=== PATIENT | male | born 1945 | race Caucasian/White ===

== ENCOUNTER 2018-04-17 18:03 | Inpatient (IN) | payer MEDICARE, OTHER ==
[2018-04-17 18:59] LABS: % BASOPHILS 0.1 % (0.0-2.0); % EOSINOPHILS 1.7 % (0.0-5.0); % LYMPHOCYTES 18.2 % (20.0-50.0); % MONOCYTES 6.8 % (2.0-10.0); % NEUTROPHILS 73.2 % (40.0-80.0); EOSINOPHILE ABSOLUTE 0.2 Th/cmm (0.1-0.4); HEMATOCRIT 45.5 % (41.0-60); HEMOGLOBIN 15.1 gm/dL (12-16); LYMPHOCYTE ABSOLUTE 1.7 Th/cmm (1.5-3.0); MEAN CELL VOLUME 89.3 fl (80-99); MEAN CORPUSCULAR HEMOGLOBIN 29.7 pg (27.0-31.0); MEAN CORPUSCULAR HGB CONC 33.3 pg (28.0-36.0); MEAN PLATELET VOLUME 6.9 fl; MONOCYTE ABSOLUTE 0.6 Th/cmm (0.3-1.0); NEUTROPHILE ABSOLUTE 6.6 Th/cmm (1.8-8.0); PLATELET COUNT 304 Th/cmm (150-400); RED BLOOD COUNT 5.09 Mil/cmm (3.80-5.80); WHITE BLOOD COUNT 9.1 Th/cmm (4.8-10.8)
[2018-04-17 19:17] LABS: ALB/GLOB RATIO 1.4 (1.0-1.8); ALBUMIN 3.7 gm/dL (4.2-5.5); ALKALINE PHOSPHATASE 69 U/L (34-104); ANION GAP 12.4 (7.0-16.0); BILIRUBIN,TOTAL 0.6 mg/dL (0.3-1.0); BUN - UREA NITROGEN 22 mg/dL (7-25); CALCIUM SERUM 8.8 mg/dL (8.6-10.3); CARBON DIOXIDE 26.6 mEq/L (21.0-31.0); CHLORIDE 105 mEq/L (98-107); CREATININE - SERUM 1.2 mg/dL (0.7-1.3); GLUCOSE 190 mg/dL (70-105); MAGNESIUM 2.2 mg/dL (1.9-2.7); PHOSPHOROUS 3.7 mg/dL (2.5-5.0); SGOT 10 U/L (13-39); SGPT/ALT 12 U/L (7-52); SODIUM SERUM 140 mEq/L (136-145); TOTAL PROTEIN,SERUM 6.4 gm/dL (6.0-8.3)
--- NOTE | 2018-04-17 19:25 | ED Physician Chart ---
ED Chief Complaint/HPI - Patient Information Date Seen:: 04/17/18 Time Seen:: 18:19 Chief Complaint:: Combative behavior History of Present Illness:: Combative behavior Allergies:: Allergies Allergy/AdvReac Type Severity Reaction Status Date / Time No Known Allergies Allergy Verified 04/17/18 18:08 Vitals:: Vital Signs - 8 hr 04/17/18 18:19 Temp 97.7 F HR 82 RR 17 BP 120/55 O2 Sat % 99 Historian:: Medical Records Review:: Transfer documents Reviewed ED Review of Systems - Review of Systems General/Constitutional: No fever, No chills, No weight loss, No weakness, No diaphoresis, No edema, No loss of appetite Skin: No skin lesions, No rash, No bruising Head: No headache, No light-headedness Eyes: No loss of vision, No pain, No diplopia ENT: Earache Neck: No neck pain, No swelling, No thyromegaly, No stiffness, No mass noted Cardio Vascular: No chest pain, No palpitations, No PND, No orthopnea, No edema Pulmonary: No SOB, No cough, No sputum, No wheezing GI: No nausea, No vomiting, No diarrhea, No pain, No melena, No hematochezia, No constipation, No hematemesis G/U: No dysuria, No frequency, No hematuria Musculoskeletal: No bone or joint pain, No back pain, No muscle pain Endocrine: No polyuria, No polydipsia Psychiatric: Prior psych history, Other (combative disorder; increased agitation ) Hematopoietic: No bruising, No lymphadenopathy Allergic/Immuno: No urticaria, No angioedema Neurological: No syncope, No focal symptoms, No weakness, No paresthesia, No headache, No seizure, No dizziness, No confusion, No vertigo ED Past Medical History - Past Medical History Past Medical History: HTN, DM, Dyslipidemia Psychiatricy History: Other (impulsive control disorder; pseudobulbar affect) Family Medical History - Family Member Mother History Unknown: Yes Ethnicity: Non- Living Status: ED Physical Exam - Physical Examination General/Constitutional: Awake, Well-developed, well-nourished, Alert, No distress, Non-toxic appearing, Ambulatory Head: Atraumatic Eyes: Lids, conjuctiva normal, PERRL, EOMI Skin: Nl inspection, No rash, No skin lesions, No ecchymosis, Well hydrated, No lymphadenopathy ENMT: External ears, nose nl Neck: Nontender, Full ROM w/o pain, No JVD, No nuchal rigidity, No bruit, No mass, No stridor Respiratory: Nl effort/Exclusion, Clear to Auscultation, No Wheeze/Rhonchi/Rales Cardio Vascular: RRR, No murmur, gallop, rubs, NL S1 S2 GI: No tenderness/rebounding/guarding, No organomegaly, No hernia, Normal BS's, Nondistended, No mass/bruits, No McBurney tenderness : No CVA tenderness Extremities: No tenderness or effusion, Full ROM, normal strength in all extremities, No edema, Normal digits & nails Neuro/Psych: Normal sensory exam, Normal motor strength, No focal deficits Misc: Normal back ED Labs/Radiology/EKG Results - Lab Results Results: Laboratory Tests 04/17/18 04/17/18 04/17/18 18:45 18:45 18:45 WBC 9.1 RBC 5.09 Hgb 15.1 Hct 45.5 MCV 89.3 MCH 29.7 MCHC Differential 33.3 RDW 13.0 Plt Count 304 MPV 6.9 Neutrophils % 73.2 Lymphocytes % 18.2 L Monocytes % 6.8 Eosinophils % 1.7 Basophils % 0.1 Sodium 140 Potassium 4.0 Chloride 105 Carbon Dioxide 26.6 Anion Gap 12.4 BUN 22 Creatinine 1.2 Est GFR ( Amer) TNP Est GFR (Non-Af Amer) TNP BUN/Creatinine Ratio 18.3 Glucose 190 H Calcium 8.8 Phosphorus 3.7 Magnesium 2.2 Total Bilirubin 0.6 AST 10 L ALT 12 Alkaline Phosphatase 69 Total Protein 6.4 Albumin 3.7 L Globulin 2.7 Albumin/Globulin Ratio 1.4 Valproic Acid < 10.0 L ED Assessment - Assessment General Assessment: SIGN OUT GIVEN TO DR. ALEGRE TO CHECK URINALYSIS. ED Septic Shock - . Is Septic Shock (SBP<90, OR Lactate>4 mmol\L) present?: No - <6hrs of presentation: Vital Signs: Vital Signs - 8 hr 04/17/18 18:19 Temp 97.7 F HR 82 RR 17 BP 120/55 O2 Sat % 99 ED Reassessment (Disposition) - Reassessment Reassessment Condition:: Unchanged - Diagnosis Diagnosis:: Combative behavior Increased agitation Impulsive control disorder Pseudobulbar affect - Aftercare/Follow up Instructions Notes:: SIGN OUT GIVEN TO DR. ALEGRE TO CHECK URINALYSIS. - Patient Disposition Discharge/Transfer:: Acute Care w/in this hosp Admitted to:: [facility] Condition at Disposition:: Stable, Unchanged
[2018-04-17 22:41] VITALS: BP 107/67
[2018-04-17] MEDS ORDERED: Hydrocodone/APAP 5mg/325mg Tab PO PRN (22:59)
[2018-04-18 06:37] LABS: CHOLESTEROL 142 mg/dL (<200); HDL -HIGH DENSITY LIPOPROTEIN 28 mg/dL (23-92); TRIGLYCERIDES 160 mg/dL (<150)
--- NOTE | 2018-04-18 08:53 | Psychiatric Evaluation ---
DATE OF SERVICE: 04/18/2018 JUSTIFICATION FOR HOSPITALIZATION: Combative behaviors. CHIEF COMPLAINT: "I am here to get myself declare to certain age." HISTORY OF PRESENT ILLNESS: A 72-year-old male, very confused, disoriented apparently has been combative, aggressive, agitated, does not know where he is, believes that he is here to "get myself declared at certain age." States the year is "the ." The month is "." States he was born "." What he describes is his date of . The patient is nonsensical on exam, very poor historian. Denies overt depression. 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 PAST PSYCHIATRIC HISTORY: Unclear, but seems that he is pretty serious, narrow cognitive impairment, strong, rule out dementia. Unclear if he has any bipolar disorder. FAMILY HISTORY: Noncontributory. SOCIAL HISTORY: The patient seems to be coming from a correction facility, but details as of yet are unclear. It is unclear if he has a or any children. Unclear drugs, alcohol or tobacco, not able to answer these questions. MEDICAL HISTORY: Please see full H and P. MEDICATIONS: Reviewed. MENTAL STATUS EXAMINATION: Stated age. Fair eye contact. Speech is rambling. Mood "okay." Affect flat. Thought processes were disorganized, disoriented. No overt SI or HI. No acute psychotic symptoms. Poor insight, poor judgment, poor impulse control. PROVISIONAL DIAGNOSES: Likely dementia, psychosis, unspecified; mood, unspecified. Under medical, please see full H and P including pseudobulbar affect. ESTIMATED LENGTH OF STAY: 7-10 days. ASSESSMENT: The patient is disorganized, disoriented, combative, confused. PLAN: Treatment plan includes group as well as milieu therapy. We will titrate and adjust medications. CONDITIONS FOR DISCHARGE: Improved mood, improved affect, better control of his agitation. JOB# [id number]
[2018-04-18] MEDS: Dextromethorphan/Quinidine 20mg/10mg Cap PO SCH ×2 (10:01→17:33)
[2018-04-18] MEDS: Aspirin 81mg Chewable Tab PO SCH (10:01)
[2018-04-18] MEDS: Multivitamin w/ Minerals Tab PO SCH (10:01)
[2018-04-18] MEDS: GALANTAMINE HYDROBROMIDE 12 MG PO SCH ×2 (10:02→17:32)
[2018-04-18] MEDS ORDERED: Non-Formulary Item 1 EA (Metoprolol Succinate [Metoprolol Succinate] 25 MG) PO SCH (17:00)
[2018-04-18] MEDS: Atorvastatin Calcium 10 MG TAB PO SCH (20:56)
[2018-04-18] MEDS ORDERED: Non-Formulary Item 1 EA (Atorvastatin Calcium [Lipitor] 40 MG) PO SCH (21:00)
--- NOTE | 2018-04-18 21:47 | History & Physical ---
ADMIT DATE: 04/18/2018 PATIENT IDENTIFICATION: A 72-year-old male. REQUESTING PHYSICIAN: Dr. Gerber. REASON: Medical management. HISTORY OF PRESENT ILLNESS: A 72-year-old male who resides in a usp, brought in to the Emergency Room at [facility] for evaluation of combative, aggressive behavior with agitation. The patient, upon my interview, is very calm and trying to provide history, but he needed to think multiple times in order to give history. I do think his history is quite a bit unreliable. The patient's history is reviewed from the chart as well as talking to the staff. PAST MEDICAL HISTORY: Remarkable for: 1. Diabetes. 2. Hypertension. 3. Hyperlipidemia. 4. Degenerative joint disease. 5. Dementia. 6. Cerebrovascular accident. 7. Psychotic disorder. MEDICATIONS AT HOME: The patient is taking medications, which includes Tylenol, Wray, vitamin C, aspirin, Lipitor, Nuedexta, Depakote, Zetia, Pepcid, Razadyne, Glucotrol, lisinopril, Ativan, metoprolol, Ambien. ALLERGIES: The patient is not allergic to medications. SOCIAL HISTORY: The patient resides in a usp. No history of smoking cigarette, alcohol, or drug use. FAMILY MEDICAL HISTORY: Unknown. REVIEW OF SYSTEMS: The patient denies any headache, blurred vision, double vision, dysphagia, odynophagia, runny nose, stuffy nose, fever, chills, cough, chest pain, shortness of breath, palpitation, dizziness, nausea, vomiting, or diarrhea. The patient complained of difficulty walking. Denies any seizure or syncopal episode. PHYSICAL EXAMINATION: GENERAL: Alert, awake, lying in the bed. VITAL SIGNS: Temperature 97.6, pulse 77, respiratory rate is 18, blood pressure 130/70. HEENT: Normocephalic, atraumatic. Extraocular muscles intact. Tongue was pink and coated. No oral lesions, no exudate. No sinus tenderness. NECK: Supple, no JVD, no hepatojugular reflex. No lymphadenopathy or thyromegaly. HEART: Both heart sounds are regular. Grade 3/6 systolic murmur noted. CHEST: Lung equal in expansion, no expiratory wheezing. ABDOMEN: Soft. No guarding, no rigidity. Liver and spleen palpable. No palpable mass. EXTREMITIES: No edema. Diffuse osteoarthritic changes involving upper and lower extremity noted. No calf tenderness noted. NEUROLOGIC: Alert, awake, follows commands. No facial asymmetry. Moves upper and lower extremity without any difficulty. No evidence of any atrophy or hypo or hypertonia noted. Unable to do further examinations considering the patient was not cooperative to a detailed neurological exam. AVAILABLE DIAGNOSTIC DATA: White count of 9.1, hemoglobin of 15.1, platelet count of 304. BUN and creatinine is 22 and 1.2. Electrolytes are normal. Liver functions are normal. Albumin of 3.7. TSH of 1.95. CLINICAL IMPRESSION: 1. Diabetes mellitus. 2. Hypertension. 3. Hyperlipidemia. 4. Psychotic disorder exacerbation. 5. Dementia. 6. Cerebrovascular accident. 7. Degenerative joint disease. 8. Fall risk. PLAN: Resume antihypertensive medicine along with diabetic and statins. Continue to provide nutritional support, general nursing care as well as CVA prophylaxis. Resume all his home medication as well. The patient will be seen by physical therapy and appropriate recommendation will be given. Psychotic evaluation and management will be deferred to psychiatrist. I sincerely thank you, Dr. Gerber, for giving me the opportunity to participate in patient of yours. JOB# [id number]
--- NOTE | 2018-04-19 06:50 | Progress Notes ---
DATE: 04/19/2018 SUBJECTIVE: The patient is currently in the hospital, calm, cooperative at this time, but very confused, forgetful, only knows his name, does not know where he is or what is going on or why he is here. The patient mostly withdrawn, keeps to himself, still noted to be impulsive, unpredictable. 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 ASSESSMENT: The patient remains symptomatic, ongoing symptoms indicative of potential dangerousness, combative behaviors. PLAN: We will continue to monitor, adjust and titrate medications. He remains impulsive. JOB# [id number]
[2018-04-19] MEDS: GALANTAMINE HYDROBROMIDE 12 MG PO SCH ×2 (09:25→17:02)
[2018-04-19] MEDS: Aspirin 81mg Chewable Tab PO SCH (09:26)
[2018-04-19] MEDS: Multivitamin w/ Minerals Tab PO SCH (09:27)
[2018-04-19] MEDS: Dextromethorphan/Quinidine 20mg/10mg Cap PO SCH ×2 (09:27→17:01)
--- NOTE | 2018-04-19 16:29 | Progress Notes ---
DATE: 04/19/2018 IDENTIFICATION: A 72-year-old male. SUBJECTIVE: The patient seen and examined. The patient is lying in the bed. The patient currently calm and cooperative. Denies any chest pain, shortness of breath, palpitation, dizziness, nausea, vomiting. PHYSICAL EXAMINATION: VITAL SIGNS: Temperature 97, pulse is 60, respiratory rate 18, and blood pressure 137/90. HEENT: No facial asymmetry. NECK: Supple, no JVD. HEART: Regular. CHEST AND LUNGS: Equal in expansion, no expiratory wheezing. ABDOMEN: Soft. No guarding, no rigidity. Bowel sounds present. No palpable mass. EXTREMITIES: No edema. CLINICAL IMPRESSION: 1. Diabetes mellitus. 2. Hypertension. 3. Hyperlipidemia. 4. Psychotic disorder exacerbation. 5. Dementia. 6. Cerebrovascular accident. 7. Degenerative joint disease. 8. Fall risk. PLAN: 1. Oral hypoglycemic agent. 2. Glucose monitoring. 3. Antihypertensive medicine. 4. Statins. 5. Psych medication and psych followup. 6. Cerebrovascular accident prophylaxis. 7. General nursing care. 8. Nutritional support. 9. We will continue to follow this patient during the stay in the hospital. 10. Medication list has been reviewed. JOB# [id number]
[2018-04-19] MEDS: Atorvastatin Calcium 10 MG TAB PO SCH (20:33)
[2018-04-20] MEDS: Aspirin 81mg Chewable Tab PO SCH (08:40)
[2018-04-20] MEDS: Dextromethorphan/Quinidine 20mg/10mg Cap PO SCH ×2 (08:40→17:11)
[2018-04-20] MEDS: GALANTAMINE HYDROBROMIDE 12 MG PO SCH ×2 (08:56→17:12)
[2018-04-20] MEDS: Multivitamin w/ Minerals Tab PO SCH (08:56)
--- NOTE | 2018-04-20 10:59 | Progress Notes ---
DATE: 04/20/2018 SUBJECTIVE: The patient lying in the bed, alert, awake, denies any pain or any discomfort. The patient denies any chest pain or shortness of breath. The patient is very cooperative. Denies any fever or chills. PHYSICAL EXAMINATION: VITAL SIGNS: Temperature 98.6, pulse is 61, respiratory rate is 18, blood pressure 112/53. HEENT: No facial asymmetry. NECK: Supple, no JVD. HEART: Both heart sounds are regular. CHEST AND LUNGS: Equal in expansion, no expiratory wheezing. ABDOMEN: Soft. No guarding, no rigidity. Liver, spleen are not palpable. No palpable masses. EXTREMITIES: No edema, no cyanosis. No facial edema or cyanosis. Peripheral pulses +1. NEUROLOGIC: Alert, awake, follows command. No facial asymmetry. Moves upper and lower extremities without any difficulty. AVAILABLE DIAGNOSTIC DATA: None for my review. Medication admission record is reviewed. CLINICAL IMPRESSION: 1. Diabetes. 2. Hypertension. 3. Hyperlipidemia. 4. Dementia. 5. Degenerative joint disease. 6. High risk for fall. 7. Psychotic disorder exacerbation. PLAN: 1. Continue aspirin. 2. Lipitor. 3. Zetia. 4. Razadyne. 5. Glucotrol. 6. Zestril. 7. Metoprolol. 8. Symptoms management. 9. Psych medication and psych followup. 10. General nursing care. 11. Nutritional support. 12. Care plan reviewed and discussed. JOB# [id number]
--- NOTE | 2018-04-20 16:39 | Progress Notes ---
DATE: 04/20/2018 SUBJECTIVE: The patient in the hospital, remains confused, forgetful, making statements that he wants to , grinding his teeth, does not know where he is or what is going on. Sometimes stating that he wants to and other time stating he feels "fine." Poor orientation, nonsensical responses to statements. Some anxiety noted. No clear explanation as to why he grinds his teeth, so dramatically, "It is a habit." ASSESSMENT: The patient withdrawn, isolative, mostly keeps to himself. Ongoing safety concerns, concerns about impulsivity. PLAN: We will continue to monitor given his history of dementia, aggressive symptoms, also making statements about self-harm. There are ongoing safety concerns. JOB# [id number]
[2018-04-21] MEDS: Dextromethorphan/Quinidine 20mg/10mg Cap PO SCH ×3 (09:20→17:00)
[2018-04-21] MEDS: Aspirin 81mg Chewable Tab PO SCH ×2 (09:21→14:36)
[2018-04-21] MEDS: GALANTAMINE HYDROBROMIDE 12 MG PO SCH ×3 (09:22→17:00)
[2018-04-21] MEDS: Multivitamin w/ Minerals Tab PO SCH ×2 (09:24→14:37)
--- NOTE | 2018-04-21 16:19 | Progress Notes ---
DATE: 04/21/2018 SUBJECTIVE: The patient is refusing medications, continues to grind his teeth, does not know where he is or what is going on. Poor orientation, forgetful, currently in the hospital due to disorientation, aggressive behaviors. He has been pretty agitated, seems to be demented, very confused, does not know what is going on. Sleeping well, eating well. Staff concerned due to medication refusals, seems depressed, withdrawn. ASSESSMENT: The patient keeps to himself, grinds his teeth, disorganized, bizarre, does not believe he needs medications "there is nothing wrong with me." PLAN: We will continue to monitor. Continue to encourage better medication compliance. [facility]# [id number]
[2018-04-22] MEDS: Aspirin 81mg Chewable Tab PO SCH (09:15)
[2018-04-22] MEDS: Dextromethorphan/Quinidine 20mg/10mg Cap PO SCH ×2 (09:15→16:45)
[2018-04-22] MEDS: GALANTAMINE HYDROBROMIDE 12 MG PO SCH ×2 (09:16→16:46)
[2018-04-22] MEDS: Multivitamin w/ Minerals Tab PO SCH (09:20)
--- NOTE | 2018-04-22 23:05 | History & Physical ---
ADMIT DATE: 04/17/2018 HISTORY OF PRESENT ILLNESS: The patient in the hospital, remains confused, disoriented, still not wanting to take medications. "Meds do not help me." Does not know where he is or why he is in the hospital, generally disoriented, confused, mostly keeps to himself, withdrawn, remains impulsive, unpredictable. ASSESSMENT: The patient with ongoing symptoms, impulsive, unpredictable and resistive to care. PLAN: We will continue to encourage medication compliance. Continue to monitor on an inpatient basis. JOB# [id number]
[2018-04-23] MEDS: GALANTAMINE HYDROBROMIDE 12 MG PO SCH ×2 (08:51→16:09)
[2018-04-23] MEDS: Dextromethorphan/Quinidine 20mg/10mg Cap PO SCH ×2 (08:51→16:09)
[2018-04-23] MEDS: Aspirin 81mg Chewable Tab PO SCH (08:51)
[2018-04-23] MEDS: Multivitamin w/ Minerals Tab PO SCH (08:51)
[2018-04-23] MEDS: Escitalopram Oxalate 5 mg Tab PO SCH (21:36)
--- NOTE | 2018-04-24 00:30 | Progress Notes ---
DATE: 04/23/2018 SUBJECTIVE: The patient seen, chart reviewed, discussed with staff. The patient noted by staff to be hypersexual, bizarre, trying to play with his penis, making some nonsensical statements, confused. The patient at times not taking medications. The patient noted increased agitation and combative behaviors mostly isolating in bed, confused, forgetful able to make needs known. The patient has slept about 7-1/2 hours. ASSESSMENT: The patient remains symptomatic, bizarre, hypersexual at times, sexually inappropriate. PLAN: We will continue to monitor. The patient will likely benefit from dose changes of medications. We will start medications to address mood, anxiety, poor impulsivity. [facility]# [id number]
[2018-04-24] MEDS: GALANTAMINE HYDROBROMIDE 12 MG PO SCH ×2 (10:30→18:47)
[2018-04-24] MEDS: Dextromethorphan/Quinidine 20mg/10mg Cap PO SCH ×2 (10:30→18:47)
[2018-04-24] MEDS: Multivitamin w/ Minerals Tab PO SCH (14:27)
[2018-04-24] MEDS: Aspirin 81mg Chewable Tab PO SCH (18:47)
--- NOTE | 2018-04-24 19:58 | Progress Notes ---
DATE: 04/24/2018 This is a 72-year-old male who remains confused, disoriented, had initially been aggressive, combative, that is why he came here, but he has been pretty consistently calm, more cooperative. Major issue is erratic medication compliance, he is not taking medications very often, refused today, took it over the past few days, remains impulsive, unpredictable, no striking out behaviors while on the unit, but he was doing it before. The patient cheeking his medications at times. MEDICATIONS: Reviewed. ASSESSMENT: The patient remains disoriented, confused, but a lot less agitated. No lashing out behaviors. PLAN: We will continue to monitor. The patient came to the hospital on Nuedexta. We will continue medications. The patient does seem to be making an improvement. Encourage med compliance. JOB# [id number]
[2018-04-24] MEDS: Escitalopram Oxalate 5 mg Tab PO SCH (21:19)
[2018-04-25] MEDS: Dextromethorphan/Quinidine 20mg/10mg Cap PO SCH ×2 (09:27→17:13)
[2018-04-25] MEDS: Aspirin 81mg Chewable Tab PO SCH (09:27)
[2018-04-25] MEDS: GALANTAMINE HYDROBROMIDE 12 MG PO SCH ×2 (09:28→17:13)
[2018-04-25] MEDS: Multivitamin w/ Minerals Tab PO SCH (09:29)
[2018-04-25] MEDS: Escitalopram Oxalate 5 mg Tab PO SCH (20:54)
--- NOTE | 2018-04-26 00:38 | Progress Notes ---
DATE: 04/25/2018 Case was discussed with staff of the patient, reviewed records. Covering for Dr. Gerber. This is a 72-year-old male who was admitted on 04/18/2018. The patient was very confused, disoriented, has been combative or aggressive, agitated, does not know where he is, believed that he is here to get herself declared at a certain age. He says that he was ____ [birth year]th, he was born, unable to tell how old is he, how long he is born, or date of . The patient is unpredictable, impulsive, making hard to understand his language. He is internally preoccupied. He also has been refusing medications, so it is hard to adjust medication when he is not taking it. He is on Depakote 250 mg twice a day, Lexapro 5 mg at bedtime, still very confused, easily agitated and will continue to work with the patient in group therapy, milieu therapy, adjust medication as needed. JOB# [id number]
[2018-04-26] MEDS: Aspirin 81mg Chewable Tab PO SCH (09:41)
[2018-04-26] MEDS: Dextromethorphan/Quinidine 20mg/10mg Cap PO SCH (09:41)
[2018-04-26] MEDS: GALANTAMINE HYDROBROMIDE 12 MG PO SCH (09:41)
[2018-04-26] MEDS: Multivitamin w/ Minerals Tab PO SCH (09:42)
--- NOTE | 2018-04-26 17:11 | Progress Notes ---
DATE: 04/26/2018 FOLLOWUP PROGRESS NOTE PROGRESS ON THE UNIT: Case was discussed with staff of the patient, reviewed records. The patient has been refusing his medication. Continues to be internally preoccupied. Continues to be unable to answer questions. He is trying to feed himself when I talked to him but unable to do so in a good manner, asked the staff to help him with his feeding. He continues to have episodes of being combative, easily agitated; however, he is not taking his medication. He may need to be ____ this up to Dr. Gerber who will be coming to see him tomorrow. No side effects to the medication, no sedation, no nausea. PLAN: We will continue to work with the patient in group therapy and milieu therapy, adjust the medication as needed. JOB# [id number]
[2018-04-26] MEDS: Escitalopram Oxalate 5 mg Tab PO SCH (20:17)
[2018-04-27] MEDS: GALANTAMINE HYDROBROMIDE 12 MG PO SCH (17:36)
[2018-04-27] MEDS: Dextromethorphan/Quinidine 20mg/10mg Cap PO SCH (17:36)
[2018-04-27] MEDS: Aspirin 81mg Chewable Tab PO SCH (17:37)
[2018-04-27] MEDS: Multivitamin w/ Minerals Tab PO SCH (17:37)
--- NOTE | 2018-04-27 18:10 | Progress Notes ---
DATE: 04/27/2018 SUBJECTIVE: The patient seen and examined. The patient does not provide any meaningful history at this time. The patient has a complex medical history. PHYSICAL EXAMINATION: Today's exam; VITAL SIGNS: Temperature 97, pulse is 64, respiratory rate 18, and blood pressure 144/80. SKIN: Warm to touch. HEENT: No facial asymmetry. Poor dentition noted. NECK: Supple, no JVD. HEART: Regular. CHEST: Lung equal in expansion, no expiratory wheezing. ABDOMEN: Soft. EXTREMITIES: No edema. LABORATORY DATA: Glucoscan has been reviewed. CLINICAL IMPRESSION: 1. Diabetes mellitus. 2. Hypertension. 3. Hyperlipidemia. 4. Dementia. 5. Psychotic disorder. 6. History of cerebrovascular accident. 7. Degenerative joint disease. 8. Fall risk. PLAN: 1. Diabetes management. 2. Hypoglycemic agent. 3. Monitor blood pressure. 4. Antihypertensive medicine. 5. Statin. 6. Psych medication. 7. Psych followup. 8. Continue CVA prophylaxis. 9. Fall precautions. 10. General nursing care. 11. Care plan reviewed and discussed with staff. JOB# [id number]
--- NOTE | 2018-04-27 21:00 | Progress Notes ---
DATE: 04/27/2018 SUBJECTIVE: The patient continues to refuse medications, internally preoccupied, episodes of irritability, anxiety, but per staff, no agitation, no aggressive behaviors. Remains confused, forgetful, depressed, sometimes takes medications, other times does not. No hallucinations or paranoia, verbalized, he remains somewhat impulsive and unpredictable. ASSESSMENT: The patient calmer, more cooperative. No aggression or agitation and he seems somewhat calmer likely approaching his baseline. Medications were noted. PLAN: We will continue to monitor and titrate and adjust medications. We will coordinate care with social work regarding safe discharge plan and good psychiatric followup. [facility]# [id number]
[2018-04-27] MEDS: Escitalopram Oxalate 5 mg Tab PO SCH (22:00)
[2018-04-28] MEDS: Aspirin 81mg Chewable Tab PO SCH (10:14)
[2018-04-28] MEDS: GALANTAMINE HYDROBROMIDE 12 MG PO SCH (10:15)
[2018-04-28] MEDS: Dextromethorphan/Quinidine 20mg/10mg Cap PO SCH (10:15)
[2018-04-28] MEDS: Multivitamin w/ Minerals Tab PO SCH (10:15)
--- NOTE | 2018-04-28 18:27 | Progress Notes ---
DATE: 04/28/2018 SUBJECTIVE: The patient is currently in the hospital, remains fairly confused, disoriented, but seemingly calmer. No agitation, no escalation of behaviors. Still does not want to take medications. No overt agitation and continues to grind his teeth. He has not been aggressive. He does remain confused, forgetful, withdrawn, signs and symptoms consistent of dementia. Sleeping well, eating well, sometimes better oriented, other time, he is pretty forgetful. ASSESSMENT: The patient remains forgetful, depressed, still with erratic medication compliance, also mostly medication compliant with his medical medications. PLAN: We will continue to monitor. The patient likely approaching his baseline. Continue to encourage better med compliance. [facility]# [id number]
[2018-04-28] MEDS: Escitalopram Oxalate 5 mg Tab PO SCH (21:07)
[2018-04-29] MEDS: Aspirin 81mg Chewable Tab PO SCH (08:03)
[2018-04-29] MEDS: Dextromethorphan/Quinidine 20mg/10mg Cap PO SCH ×2 (08:03→16:55)
[2018-04-29] MEDS: GALANTAMINE HYDROBROMIDE 12 MG PO SCH ×3 (08:03→16:55)
[2018-04-29] MEDS: Multivitamin w/ Minerals Tab PO SCH (08:04)
[2018-04-29] MEDS: Escitalopram Oxalate 5 mg Tab PO SCH (20:33)
--- NOTE | 2018-04-30 02:59 | Progress Notes ---
DATE: 04/29/2018 SUBJECTIVE: The patient is more compliant with eating new medications. Poorly oriented. No delusions. No SI, no HI. The patient likely approaching his baseline symptoms, refused with care, for example does not staff. The sternum over, but he can turn himself. The patient erratically medication compliance, but sometimes taking no aggressive behaviors, no agitation, no escalation of behaviors. ASSESSMENT: The patient likely approaching his baseline, calmer, more cooperative, seems to be getting along well with staff and peers. No outbursts. PLAN: We will continue to monitor. I will attempt to confirm safe disposition plan per services advisor note the patient coming [facility] the [facility]. [facility]# [id number]
[2018-04-30] MEDS: Dextromethorphan/Quinidine 20mg/10mg Cap PO SCH (08:43)
[2018-04-30] MEDS: GALANTAMINE HYDROBROMIDE 12 MG PO SCH (08:43)
[2018-04-30] MEDS: Multivitamin w/ Minerals Tab PO SCH (08:44)
[2018-04-30] MEDS: Aspirin 81mg Chewable Tab PO SCH (08:44)
--- NOTE | 2018-04-30 18:33 | Discharge Summary ---
DATE OF DISCHARGE: 04/30/2018 JUSTIFICATION FOR HOSPITALIZATION: Combative. HISTORY OF PRESENT ILLNESS: A 72-year-old male, confused, disoriented, combative, aggressive, very confused, not making any sense, disoriented on exam, nonsensical statements. PAST PSYCHIATRIC HISTORY: Likely dementia. Unclear if he has bipolar disorder. FAMILY HISTORY: Noncontributory. SOCIAL HISTORY: Coming from a residential. PAST MEDICAL HISTORY: Please see full H and P. MEDICATIONS: Noted. PROVISIONAL DIAGNOSIS: Likely dementia, psychosis, unspecified; mood, unspecified. Under medical, please see full H and P including pseudobulbar affect. HOSPITAL COURSE: After initial assessment, the patient was restarted on medications including Nuedexta, Lexapro, also medications were adjusted and titrated including Depakote. The patient with erratic medication compliance, but at times taking medications. The patient is confused, disoriented as the hospitalization course progressed, he was significantly calmer, no longer combative, remains bizarre, nonsensical. No overt psychotic, symptoms are delusions noted. He was no longer agitated. No longer trying to hit staff, somewhat better compliance, noted to be withdrawn, forgetful. By 04/30/2018, he was devoid of any agitation, no aggressive symptoms, no violence and he was discharged. CONDITION UPON DISCHARGE: Improved, allowing ADLs. Mood "okay." Affect flat. Thought processes were confused. No SI, no HI. No psychosis. Insight and judgment remained diminished. Impulse control better. PROVISIONAL DIAGNOSES: Likely dementia, dementia with behaviors; psychosis. Mood, unspecified; anxiety, unspecified, not psychosis, unspecified. Under medical, please see full H and P including pseudobulbar affect. PROGNOSIS: The patient follows up with outpatient mental health services and remains compliant with treatment. Prognosis will improve, otherwise guarded. [facility]# [id number]
--- NOTE | 2018-05-01 09:09 | Progress Notes ---
DATE: 04/30/2018 SUBJECTIVE: The patient seen and examined. The patient is lying in the bed, does not provide a meaningful history. PHYSICAL EXAMINATION: VITAL SIGNS: Temperature 98, pulse is 77, respiratory rate 18, blood pressure 130/80. HEENT: No facial asymmetry. Poor dentition. NECK: Supple. No JVD. HEART: Regular, no murmur. CHEST: Lungs equal in expansion. No expiratory wheezing. ABDOMEN: Soft. No guarding. No rigidity. Liver and spleen ____, no palpable mass. EXTREMITIES: No edema. NEUROLOGIC: Alert, trying to follow commands. Glucoscan and medication admission record was reviewed. CLINICAL IMPRESSION: 1. Diabetes. 2. Hypertension. 3. Hyperlipidemia. 4. Dementia. 5. Psychotic disorder. 6. History of cerebrovascular accident. 7. Degenerative joint disease. 8. Fall risk. PLAN: 1. Monitor blood sugar and blood pressure. 2. Antihypertensive medication. 3. Statin. 4. General nursing care. 5. Psych medication. 6. Dementia medication. 7. Fall precautions. 8. Nutritional support. 9. Care plan reviewed and discussed with staff. JOB# [id number]
== END 2018-04-30 15:15 | DRG 885 ==
LOC: ER 18:03 → GERO 20:30
PROVIDERS: ADMIT Psychiatry & Neurology Psychiatry; ATTEND Psychiatry & Neurology Psychiatry
DX: F23 Brief psychotic disorder (principal); F03.91 Unspecified dementia, unspecified severity, with behavioral disturbance; E11.9 Type 2 diabetes mellitus without complications; I10 Essential (primary) hypertension; E78.5 Hyperlipidemia, unspecified; Z86.73 Personal history of transient ischemic attack (TIA), and cerebral infarction without residual deficits; M19.90 Unspecified osteoarthritis, unspecified site; Z91.81 History of falling; F63.9 Impulse disorder, unspecified; F48.2 Pseudobulbar affect; F29 Unspecified psychosis not due to a substance or known physiological condition; F39 Unspecified mood [affective] disorder; Z79.82 Long term (current) use of aspirin; Z79.84 Long term (current) use of oral hypoglycemic drugs; F41.9 Anxiety disorder, unspecified
CPT/HCPCS: 36415-UA; 80053-TC; 80061-TC; 80164-TC; 82948-90; 83036-90; 83735-TC; 84100-TC; 84443-TC; 85025-TC; 97530; X3904; Z7610

== ENCOUNTER 2018-10-02 18:43 | Inpatient (IN) | payer MEDICARE, OTHER ==
[2018-10-02 19:46] LABS: % EOSINOPHILS 1.8 % (0.0-5.0); % LYMPHOCYTES 14.1 % (20.0-50.0); % MONOCYTES 6.5 % (2.0-10.0); % NEUTROPHILS 77.6 % (40.0-80.0); EOSINOPHILE ABSOLUTE 0.2 Th/cmm (0.1-0.4); HEMATOCRIT 41.8 % (41.0-60); HEMOGLOBIN 14.1 gm/dL (12-16); LYMPHOCYTE ABSOLUTE 1.5 Th/cmm (1.5-3.0); MEAN CELL VOLUME 90.1 fl (80-99); MEAN CORPUSCULAR HEMOGLOBIN 30.4 pg (27.0-31.0); MEAN CORPUSCULAR HGB CONC 33.7 pg (28.0-36.0); MEAN PLATELET VOLUME 7.1 fl; MONOCYTE ABSOLUTE 0.7 Th/cmm (0.3-1.0); NEUTROPHILE ABSOLUTE 7.9 Th/cmm (1.8-8.0); PLATELET COUNT 301 Th/cmm (150-400); RED BLOOD COUNT 4.64 Mil/cmm (3.80-5.80); RED CELL DISTRIBUTION WIDTH 13.1 % (11.5-20.0); WHITE BLOOD COUNT 10.3 Th/cmm (4.8-10.8)
[2018-10-02 20:02] LABS: ANION GAP 9.5 (7.0-16.0); BUN - UREA NITROGEN 18 mg/dL (7-25); CALCIUM SERUM 8.8 mg/dL (8.6-10.3); CARBON DIOXIDE 25.2 mEq/L (21.0-31.0); CHLORIDE 104 mEq/L (98-107); CREATININE - SERUM 0.9 mg/dL (0.7-1.3); GLUCOSE 122 mg/dL (70-105); POTASSIUM SERUM 3.7 mEq/L (3.5-5.1); SODIUM SERUM 135 mEq/L (136-145)
--- NOTE | 2018-10-02 21:12 | ED Physician Chart ---
ED Chief Complaint/HPI - Patient Information Date Seen:: 10/02/18 Time Seen:: 21:07 Chief Complaint:: agitation History of Present Illness:: 73 yr old male from group home with agitation refusal of meds and psychosis Allergies:: Allergies Allergy/AdvReac Type Severity Reaction Status Date / Time No Known Allergies Allergy Verified 04/17/18 18:08 Vitals:: Vital Signs - 8 hr 10/02/18 10/02/18 18:51 19:47 Temp 101.3 F 100.7 F HR 78 73 RR 19 82 BP 144/77 129/86 O2 Sat % 95 97 ED Review of Systems - Review of Systems General/Constitutional: No fever Head: No headache Eyes: No loss of vision ENT: No earache Neck: No neck pain Cardio Vascular: No chest pain Pulmonary: No SOB GI: No nausea G/U: No dysuria Musculoskeletal: No bone or joint pain Endocrine: No polyuria Psychiatric: Prior psych history Hematopoietic: No bruising Allergic/Immuno: No urticaria Neurological: No syncope ED Past Medical History - Past Medical History Past Medical History: DM, Other (dementia ) Family Medical History - Family Member Mother History Unknown: Yes Ethnicity: Non- Living Status: ED Physical Exam - Physical Examination General/Constitutional: Well-developed, well-nourished Head: Atraumatic Eyes: Lids, conjuctiva normal Skin: Nl inspection ENMT: External ears, nose nl Neck: Full ROM w/o pain Respiratory: Nl effort/Exclusion Cardio Vascular: RRR GI: No tenderness/rebounding/guarding Extremities: No tenderness or effusion ED Labs/Radiology/EKG Results - Lab Results Results: Laboratory Tests 10/02/18 10/02/18 19:30 19:30 WBC 10.3 RBC 4.64 Hgb 14.1 Hct 41.8 MCV 90.1 MCH 30.4 MCHC Differential 33.7 RDW 13.1 Plt Count 301 MPV 7.1 Neutrophils % 77.6 Lymphocytes % 14.1 L Monocytes % 6.5 Eosinophils % 1.8 Basophils % 0.0 Sodium 135 L Potassium 3.7 Chloride 104 Carbon Dioxide 25.2 Anion Gap 9.5 BUN 18 Creatinine 0.9 Est GFR ( Amer) TNP Est GFR (Non-Af Amer) TNP BUN/Creatinine Ratio 20.0 Glucose 122 H Calcium 8.8 ED Assessment - Assessment General Assessment: agitation psychosis ED Septic Shock - . Is Septic Shock (SBP<90, OR Lactate>4 mmol\L) present?: No - <6hrs of presentation: Vital Signs: Vital Signs - 8 hr 10/02/18 10/02/18 18:51 19:47 Temp 101.3 F 100.7 F HR 78 73 RR 19 82 BP 144/77 129/86 O2 Sat % 95 97 ED Reassessment (Disposition) - Reassessment Reassessment:: agitation psychosis - Diagnosis Diagnosis:: as above - Patient Disposition Discharge/Transfer:: Acute Care w/in this hosp Admitted to:: Med/Surg Condition at Disposition:: Stable
[2018-10-02] MEDS ORDERED: Magnesium Hydroxide (MOM) 30 mL UDC PO PRN (21:43)
[2018-10-02] MEDS ORDERED: Maalox 30 mL Cup PO PRN (21:43)
[2018-10-02] MEDS ORDERED: Hydrocodone/APAP 5mg/325mg Tab PO PRN (21:53)
[2018-10-02 22:14] VITALS: BP 150/91
[2018-10-02 23:06] LABS: CHOLESTEROL 111 mg/dL (<200); HDL -HIGH DENSITY LIPOPROTEIN 26 mg/dL (23-92); TRIGLYCERIDES 152 mg/dL (<150)
[2018-10-03] MEDS: INSULIN HUMAN REGULAR 100 UNITS/ML UNIT SUBQ SCH ×4 (06:45→20:53)
--- NOTE | 2018-10-03 06:56 | History & Physical ---
ADMIT DATE: 10/02/2018 CHIEF COMPLAINT: Agitation. HISTORY OF PRESENT ILLNESS: This is a 73-year-old male who was originally admitted from group home facility and was transferred to the Emergency Room in [facility] due to increase in agitation. From the Emergency Room, test were done and the patient was medically cleared and hence transferred to psychiatric unit. REVIEW OF SYSTEMS: GENERAL: This is a 73-year-old male. No fever. No weakness. EYES: No eye pain or blurring vision. NECK: No neck pain or nuchal rigidity. CHEST: No chest pain or palpitation. PULMONARY: No coughing. No shortness of breath. GASTROINTESTINAL: No abdominal pain, no constipation, no diarrhea. MUSCULOSKELETAL: No joint pain. No muscle pain. SOCIAL HISTORY: The patient lives in a group home facility prior to hospitalization. PAST SURGICAL HISTORY: Unremarkable. FAMILY HISTORY: Unremarkable. PAST MEDICAL HISTORY: Includes diabetes, hyperlipidemia, gastroesophageal reflux disease, and osteoarthritis. PSYCHIATRIC HISTORY: Includes psychosis. PHYSICAL EXAMINATION: VITAL SIGNS: Temperature 98.8, heart rate 69, blood pressure 115/62, respirations of 18, and 96% on room air. GENERAL: This is a 73-year-old male that appears as stated in no acute distress. HEENT: Head is atraumatic and normocephalic. Eyes: Bilateral conjunctivae are clear. Bilateral pupils are equally round and reactive. NECK: Supple. No JVD. CARDIOVASCULAR: S1 and S2, without murmur. PULMONARY: Clear to auscultation. GASTROINTESTINAL: Soft and nontender without guarding. Positive bowel sounds. MUSCULOSKELETAL: No clubbing. No cyanosis noted. ASSESSMENT: 1. Psychosis. 2. Hypertension. 3. Hyperlipidemia. 4. Gastroesophageal reflux disease. 5. Diabetes. PLAN: We will admit the patient to Psychiatric Unit. We will do medication reconciliation accordingly. We will follow up with a psychiatrist to monitor the patient's condition and behavior. Treatment plans were discussed with the patient's nurse. Treatment plans were discussed with Dr. Retana. JOB# [id number]
[2018-10-03] MEDS: Aspirin 81mg Chewable Tab PO SCH (08:34)
[2018-10-03] MEDS: Multivitamin w/ Minerals Tab PO SCH (08:35)
[2018-10-03] MEDS ORDERED: Multivitamin Tab PO SCH (09:00)
[2018-10-03] MEDS: Dextromethorphan/Quinidine 20mg/10mg Cap PO SCH ×2 (09:06→17:05)
[2018-10-03] MEDS: GALANTAMINE HYDROBROMIDE 12 MG PO SCH ×2 (09:06→17:06)
--- NOTE | 2018-10-03 17:01 | History & Physical ---
ADMIT DATE: 10/02/2018 IDENTIFYING INFORMATION: The patient is a 73-year-old male. CHIEF COMPLAINT: No answer. HISTORY OF PRESENT ILLNESS: The patient came from a [place] [facility] facility because of agitation. He was medically cleared, transferred to the psychiatric unit. The patient was a poor historian; however, according to the records, he has a history of dementia. He came from [facility]. He is unable to participate in meaningful conversation. PAST PSYCHIATRIC HISTORY: Prior psychiatric care, he was hospitalized here back in 04/2018 because of his bizarre behavior and dementia. MEDICAL HISTORY: The patient is with a history of hypertension, hyperlipidemia, GERD, diabetes mellitus. ALLERGIES: The patient has no known drug allergies. MEDICATIONS: The patient has been on galantamine 12 mg twice a day, multivitamin, metoprolol, glipizide for his diabetes, hydrocodone for pain and famotidine for GERD, Zetia, Rocephin, atorvastatin. The patient continues to be on a conversation for self-care thoughts in meaningful conversation. FAMILY AND SOCIAL HISTORY: Unobtainable. The patient came from a nursing facility. MENTAL STATUS EXAMINATION: The patient is appropriately dressed, not well groomed. He was alert. He answered all questions "I don't know. Unable to make a reasonable conversation. He is demented. Long and short term memory is poor. He is not ____ admission with an answer when asked about suicidal ideation, homicidal ideation, he would not answer. He was acting aggressive at the nursing facility. Insight about his illness is poor and does not have a problem. Judgment is poor. IMPRESSION: Major depression, not otherwise specified, dementia with behavior disturbances. MEDICAL DIAGNOSES: As per medical team. PLAN: I will be adding Lexapro to his medication. We will do group therapy, milieu therapy, and individual therapy. ESTIMATED LENGTH OF STAY: 3-7 days. DISCHARGE CRITERIA: Decreasing depression, feeling better after discharge, outpatient treatment. JOB# [id number]
[2018-10-04] MEDS: INSULIN HUMAN REGULAR 100 UNITS/ML UNIT SUBQ SCH ×2 (06:53→12:17)
[2018-10-04] MEDS ORDERED: Escitalopram Oxalate 5 mg Tab PO SCH (09:00)
[2018-10-04] MEDS: GALANTAMINE HYDROBROMIDE 12 MG PO SCH (09:35)
[2018-10-04] MEDS: Dextromethorphan/Quinidine 20mg/10mg Cap PO SCH (09:35)
[2018-10-04] MEDS: Aspirin 81mg Chewable Tab PO SCH (09:35)
[2018-10-04] MEDS: Multivitamin w/ Minerals Tab PO SCH (09:36)
--- NOTE | 2018-10-04 14:01 | Internal Medicine Prog Note ---
Internal Medicine Subjective - Subjective Service Date: 10/04/18 (had a low grade fever, poor appetite) Patient seen and examined:: with staff Patient is:: awake, verbal Per staff patient has:: poor appetite, poor oral intake Internal Medicine Objective - Results Result Diagrams: 10/02/18 19:30 10/02/18: Recent Labs: Laboratory Last Values WBC 10.3 Th/cmm (4.8-10.8) 10/02/18: RBC 4.64 Mil/cmm (3.80-5.80) 10/02/18: Hgb 14.1 gm/dL (12-16) 10/02/18: Hct 41.8 % (41.0-60) 10/02/18: MCV 90.1 fl (80-99) 10/02/18: MCH 30.4 pg (27.0-31.0) 10/02/18: MCHC Differential 33.7 pg (28.0-36.0) 10/02/18: RDW 13.1 % (11.5-20.0) 10/02/18: Plt Count 301 Th/cmm (150-400) 10/02/18: MPV 7.1 fl 10/02/18: Neutrophils % 77.6 % (40.0-80.0) 10/02/18: Lymphocytes % 14.1 % (20.0-50.0) L 10/02/18: Monocytes % 6.5 % (2.0-10.0) 10/02/18: Eosinophils % 1.8 % (0.0-5.0) 10/02/18: Basophils % 0.0 % (0.0-2.0) 10/02/18: Sodium 135 mEq/L (136-145) L 10/02/18: Potassium 3.7 mEq/L (3.5-5.1) 10/02/18: Chloride 104 mEq/L (98-107) 10/02/18: Carbon Dioxide 25.2 mEq/L (21.0-31.0) 10/02/18: Anion Gap 9.5 (7.0-16.0) 10/02/18 19:30 BUN 18 mg/dL (7-25) 10/02/18 19:30 Creatinine 0.9 mg/dL (0.7-1.3) 10/02/18 19:30 Est GFR ( Amer) TNP 10/02/18 19:30 Est GFR (Non-Af Amer) TNP 10/02/18 19:30 BUN/Creatinine Ratio 20.0 10/02/18 19:30 Glucose 122 mg/dL (70-105) H 10/02/18 19:30 POC Glucose 146 MG/DL (70 - 105) H 10/04/18 06:22 Calcium 8.8 mg/dL (8.6-10.3) 10/02/18 19:30 Triglycerides 152 mg/dL (<150) H 10/02/18 19:30 Cholesterol 111 mg/dL (<200) 10/02/18 19:30 LDL Cholesterol Direct 71 mg/dL (75-193) L 10/02/18 19:30 HDL Cholesterol 26 mg/dL (23-92) 10/02/18 19:30 - Physical Exam Vitals and I&O: Vital Signs Temp 99.6 F 10/04/18 06:29 Pulse 93 10/04/18 06:29 Resp 20 10/04/18 06:29 BP 149/64 10/04/18 06:29 Pulse Ox 96 10/04/18 06:29 Intake & Output 10/03/18 10/04/18 10/04/18 18:59 06:59 18:59 Intake Total 800 120 Balance 800 120 Intake: Oral 800 120 Other: # Voids 3 3 # Bowel Movements 1 Active Medications: Current Medications Acetaminophen (Tylenol) 650 mg PO Q4HR PRN PRN Reason: Mild Pain / Temp above 100 Stop: 12/01/18 21:42 Last Admin: 10/04/18 06:44 Dose: 650 mg Acetaminophen/Hydrocodone Bitart ([place] 5mg/325mg) 1 tab PO Q8H PRN PRN Reason: Severe Pain Stop: 12/01/18 21:52 Al Hydrox/Mg Hydrox/Simethicone (Maalox) 30 ml PO Q4HR PRN PRN Reason: GI DISTRESS Stop: 12/01/18 21:42 Ascorbic Acid (Vitamin C) 500 mg PO DAILY [facility] Stop: 12/02/18 08:59 Last Admin: 10/04/18 09:35 Dose: Not Given Aspirin (Aspirin Chewable) 81 mg PO DAILY [facility] Stop: 12/02/18 08:59 Last Admin: 10/04/18 09:35 Dose: Not Given Atorvastatin Calcium (Lipitor) 40 mg PO HS [facility]; Protocol Stop: 12/02/18 20:59 Last Admin: 10/03/18 20:47 Dose: Not Given Dextromethorphan/Quinidine (Nuedexta 20mg-10mg) 1 cap PO BID [facility] Stop: 12/02/18 08:59 Last Admin: 10/04/18 09:35 Dose: Not Given Ezetimibe (Zetia) 10 mg PO HS [facility] Stop: 12/02/18 20:59 Last Admin: 10/03/18 20:48 Dose: Not Given Escitalopram Oxalate (Lexapro) 5 mg PO DAILY [facility]; Protocol Stop: 12/03/18 08:59 Last Admin: 10/04/18 09:35 Dose: Not Given Famotidine (Pepcid) 20 mg PO Q12H [facility] Stop: 12/01/18 21:59 Last Admin: 10/04/18 09:36 Dose: Not Given Galantamine Hydrobromide (Razadyne) 12 mg PO BID [facility] Stop: 12/02/18 08:59 Last Admin: 10/04/18 09:35 Dose: Not Given [facility] ([facility]ot[facility]) [facility] Stop: 12/02/18 07:29 Last Admin: 10/04/18 06:44 Dose: 5 mg Insulin Human Regular (Novolin R) 0 units SUBQ ACHS [facility]; Protocol Stop: 12/02/18 07:29 Last Admin: 10/04/18 12:17 Dose: Not Given Lisinopril (Zestril) 10 mg PO DAILY [facility] Stop: 12/02/18 08:59 Last Admin: 10/04/18 09:35 Dose: Not Given Lorazepam (Ativan) 0.5 mg PO Q4HR PRN; Protocol PRN Reason: Agitation Stop: 11/01/18 21:42 Magnesium Hydroxide (Milk Of Magnesia) 30 ml PO HS PRN PRN Reason: Constipation Metoprolol Succinate (Toprol Xl) 25 mg PO DAILY [facility] Stop: 12/02/18 08:59 Last Admin: 10/04/18 09:36 Dose: Not Given Zolpidem Tartrate (Ambien) 5 mg PO HS PRN PRN Reason: Insomnia Stop: 12/01/18 21:42 General: alert, demented HEENT: NC/AT, PERRLA Lungs: CTAB Cardiovascular: RRR, Normal S2 Abdomen: soft, non-distended Internal Medicine Assmt/Plan - Assessment Assessment: DM poor oral intake dementia - Plan Plan: cbc/cmp now may need to be transferred to [facility] if labs are abnormal will add megace continue current plan of care
[2018-10-04 14:59] LABS: % BASOPHILS 0.1 % (0.0-2.0); % EOSINOPHILS 0.4 % (0.0-5.0); RED CELL DISTRIBUTION WIDTH 13.3 % (11.5-20.0)
[2018-10-04 15:01] LABS: % LYMPHOCYTES 16.4 % (20.0-50.0); % MONOCYTES 10.8 % (2.0-10.0); % NEUTROPHILS 72.3 % (40.0-80.0); HEMATOCRIT 41.1 % (41.0-60); LYMPHOCYTE ABSOLUTE 1.9 Th/cmm (1.5-3.0); MEAN CELL VOLUME 90.4 fl (80-99); MEAN CORPUSCULAR HEMOGLOBIN 30.8 pg (27.0-31.0); MEAN PLATELET VOLUME 6.9 fl; MONOCYTE ABSOLUTE 1.3 Th/cmm (0.3-1.0); NEUTROPHILE ABSOLUTE 8.5 Th/cmm (1.8-8.0); PLATELET COUNT 264 Th/cmm (150-400); RED BLOOD COUNT 4.54 Mil/cmm (3.80-5.80); WHITE BLOOD COUNT 11.7 Th/cmm (4.8-10.8)
[2018-10-04 15:15] LABS: ALB/GLOB RATIO 1.2 (1.0-1.8); ALBUMIN 3.5 gm/dL (4.2-5.5); ALKALINE PHOSPHATASE 63 U/L (34-104); BILIRUBIN,TOTAL 0.8 mg/dL (0.3-1.0); BUN - UREA NITROGEN 27 mg/dL (7-25); CALCIUM SERUM 8.8 mg/dL (8.6-10.3); CHLORIDE 107 mEq/L (98-107); CREATININE - SERUM 1.3 mg/dL (0.7-1.3); GLUCOSE 144 mg/dL (70-105); SGOT 12 U/L (13-39); SGPT/ALT 16 U/L (7-52); SODIUM SERUM 139 mEq/L (136-145); TOTAL PROTEIN,SERUM 6.5 gm/dL (6.0-8.3)
--- NOTE | 2018-10-05 03:09 | Progress Notes ---
DATE: 10/04/2018 FOLLOWUP PROGRESS NOTE PROGRESS ON THE UNIT: Case was discussed with staff of the patient, reviewed records. The patient continues to be confused. He continues to be isolating himself, looking disheveled, and unable to participate in a meaningful conversation, tell me where he is, why he is here or make a safe plan for self-care. Answering any question "I don't know" so that may be probably most likely depression. He is on galantamine. I added Lexapro yesterday. No side effects, no sedation, no nausea. We will continue to work with the patient in group therapy and milieu therapy, adjust the medication as needed. JOB# [id number]
--- NOTE | 2018-10-05 07:56 | Diagnostic Imaging Report ---
Portable chest x-ray HISTORY: Cough The heart size is normal. There is an approximate 1.0 cm density over the anterior aspect of the right second rib. This is probably calcified and may be related to the rib. A CT scan would confirm and exclude a pulmonary parenchymal nodule. No other focal pulmonary parenchymal processes. Catheter tubing projects over the right chest. IMPRESSION: 1. 1.0 cm nodular density probably calcified and may be related to the anterior aspect of the right second rib as noted above. A CT scan would confirm. 2. No other acute abnormalities
--- NOTE | 2018-10-05 13:19 | Discharge Summary ---
DATE OF DISCHARGE: 10/04/2018 Case discussed with staff of the patient, reviewed records. IDENTIFYING INFORMATION: The patient is a 73-year-old male. The patient was admitted on 10/02/2018 and discharged on 10/04/2018 due to hydration to Med/Surg unit. CHIEF COMPLAINT: The patient referred from nursing facility in [facility] because of agitation. The patient himself was a poor historian, unable to answer any question, answering the questions "I don't know." He is already on galantamine and I added Lexapro. The patient was unable to participate in a meaningful conversation. He was saying to himself, talking to himself. COURSE IN THE HOSPITAL: The patient initiated Lexapro 5 mg a day and galantamine was continued for his dementia. The patient got dehydrated, so was transferred to the Med/Surg Unit. FINAL DIAGNOSES: Depression: Mood disorder, not otherwise specified, dementia. The patient will be going to Med/Surg, Dr. Gerber will follow up with the patient there. EXPECTED OUTCOME: Stable if the patient complies with the above. JOB# [id number]
== END 2018-10-04 16:00 | disposition short-term general hospital (02) | DRG 881 ==
LOC: ER 18:43 → GERO 20:15
PROVIDERS: ADMIT Psychiatry & Neurology Psychiatry; ATTEND Psychiatry & Neurology Psychiatry
DX: F32.9 Major depressive disorder, single episode, unspecified (principal); F03.91 Unspecified dementia, unspecified severity, with behavioral disturbance; E11.9 Type 2 diabetes mellitus without complications; F29 Unspecified psychosis not due to a substance or known physiological condition; E78.5 Hyperlipidemia, unspecified; K21.9 Gastro-esophageal reflux disease without esophagitis; M19.90 Unspecified osteoarthritis, unspecified site; I10 Essential (primary) hypertension; E86.0 Dehydration
CPT/HCPCS: 36415-UA; 71045-TC; 80048-TC; 80053-TC; 80061-TC; 82948-90; 83036-90; 85025-TC; J0696; J1815; Z7610

== ENCOUNTER 2018-10-04 16:15 | Inpatient (IN) | payer MEDICARE, OTHER ==
[2018-10-04] MEDS ORDERED: Magnesium Hydroxide (MOM) 30 mL UDC PO PRN (17:52)
[2018-10-04] MEDS ORDERED: Maalox 30 mL Cup PO PRN (17:52)
[2018-10-04] MEDS ORDERED: Hydrocodone/APAP 5mg/325mg Tab PO PRN (17:52)
[2018-10-04] MEDS ORDERED: Dextrose 50% 50 mL Abboject IVP PRN (17:55)
[2018-10-04] MEDS: Sodium Chloride 0.9% 1,000 ML IV SCH (18:52)
[2018-10-05] MEDS: INSULIN HUMAN REGULAR 100 UNITS/ML UNIT SUBQ SCH ×3 (01:33→11:18)
[2018-10-05] MEDS: Sodium Chloride 0.9% 1,000 ML IV SCH (05:56)
[2018-10-05] MEDS: Dextromethorphan/Quinidine 20mg/10mg Cap PO SCH ×2 (08:46→16:53)
[2018-10-05] MEDS: Aspirin 81mg Chewable Tab PO SCH (08:46)
[2018-10-05] MEDS: Escitalopram Oxalate 5 mg Tab PO SCH (08:46)
[2018-10-05] MEDS: GALANTAMINE HYDROBROMIDE 12 MG PO SCH ×2 (08:46→16:53)
[2018-10-05] MEDS: Multivitamin w/ Minerals Tab PO SCH (08:47)
--- NOTE | 2018-10-05 14:22 | History & Physical ---
ADMIT DATE: 10/05/2018 DICTATING FOR: Dr. Retana. CHIEF COMPLAINT: Transferred from [facility]. HISTORY OF PRESENT ILLNESS: This is a 73-year-old male who was transferred from [facility] Unit due to a 2-day history of poor oral intake and refusing to eat. The patient's BUN and creatinine were markedly elevated. For this reason, the patient is admitted to the med/surg unit. PAST MEDICAL HISTORY: Diabetes, hyperlipidemia, GERD, osteoarthritis. SOCIAL HISTORY: The patient is a long term resident. PAST SURGICAL HISTORY: Unknown. FAMILY HISTORY: Noncontributory. REVIEW OF SYSTEMS: Unable to obtain, the patient is confused. PHYSICAL EXAMINATION: GENERAL: Elderly male, awake, alert with confusion, no apparent distress. VITAL SIGNS: Temperature 100.7, heart rate 85, blood pressure 117/52, respirations 18, O2 sat 98%. HEENT: Head normocephalic, atraumatic. NECK: Supple. No mass. LUNGS: Clear bilaterally. CARDIOVASCULAR: Regular rate and rhythm. ABDOMEN: Soft, nontender. GENITOURINARY, RECTAL, GENITALIA: The patient refused. LABORATORY DATA: Currently pending. ASSESSMENT: Failure to thrive, poor oral intake, psychosis, type 2 diabetes, gastroesophageal reflux disease. PLAN: The patient to be admitted to the med/surg unit. IV fluids for hydration, calorie count. We will monitor the patient's electrolytes closely. We will get wound consultation, also will add Megace. Dietary consult. We will continue to monitor this patient. JOB# [id number]
[2018-10-05] MEDS: INSULIN LISPRO SLIDING SCALE 100 UNITS/ML UNIT SUBQ SCH ×2 (16:44→21:23)
[2018-10-05 19:59] LABS: % BASOPHILS 0.4 % (0.0-2.0); % EOSINOPHILS 1.8 % (0.0-5.0); % LYMPHOCYTES 23.2 % (20.0-50.0); % MONOCYTES 10.9 % (2.0-10.0); % NEUTROPHILS 63.7 % (40.0-80.0); EOSINOPHILE ABSOLUTE 0.1 Th/cmm (0.1-0.4); HEMATOCRIT 38.9 % (41.0-60); LYMPHOCYTE ABSOLUTE 1.5 Th/cmm (1.5-3.0); MEAN CELL VOLUME 89.7 fl (80-99); MEAN CORPUSCULAR HGB CONC 33.5 pg (28.0-36.0); MEAN PLATELET VOLUME 6.7 fl; MONOCYTE ABSOLUTE 0.7 Th/cmm (0.3-1.0); NEUTROPHILE ABSOLUTE 4.1 Th/cmm (1.8-8.0); PLATELET COUNT 266 Th/cmm (150-400); RED BLOOD COUNT 4.34 Mil/cmm (3.80-5.80); RED CELL DISTRIBUTION WIDTH 13.3 % (11.5-20.0); WHITE BLOOD COUNT 6.4 Th/cmm (4.8-10.8)
[2018-10-05 20:10] LABS: ANION GAP 10.2 (7.0-16.0); BUN - UREA NITROGEN 20 mg/dL (7-25); CALCIUM SERUM 8.3 mg/dL (8.6-10.3); CARBON DIOXIDE 25.5 mEq/L (21.0-31.0); CHLORIDE 107 mEq/L (98-107); GLUCOSE 120 mg/dL (70-105); POTASSIUM SERUM 3.7 mEq/L (3.5-5.1); SODIUM SERUM 139 mEq/L (136-145)
[2018-10-05 23:55] LABS: URINE SOURCE CLEAN C
[2018-10-05 23:57] LABS: URINE BILIRUBIN NEGATIVE (NEGATIVE); URINE BLOOD TRACE (NEGATIVE); URINE GLUCOSE (UA) NEGATIVE (NEGATIVE); URINE KETONE TRACE mg/dL (NEGATIVE); URINE LEUKOCYTE ESTERASE MODERATE (NEGATIVE); URINE MICROSCOPIC INDICATED? YES; URINE NITRATE POSITIVE (NEGATIVE); URINE PROTEIN TRACE mg/dL (NEGATIVE); URINE UROBILINOGEN 0.2 E.U./dL (0.2 - 1.0)
[2018-10-06 00:04] LABS: URINE CLARITY HAZY (CLEAR); URINE COLOR YELLOW
[2018-10-06 00:05] LABS: URINE RBC 0-2 /hpf (0-5)
[2018-10-06 00:06] LABS: URINE BACTERIA MODERATE /hpf (NONE SEEN); URINE EPITHELIAL CELLS FEW /lpf (FEW); URINE WBC 50-100 /hpf (0-5)
--- NOTE | 2018-10-06 02:07 | Consultation ---
DATE OF CONSULTATION: 10/05/2018 HISTORY OF PRESENT ILLNESS: The patient apparently was admitted to the Geropsych Unit. He is a 73-year-old male, well known to me, now in the med-surg unit. Noted to be oriented to name only, easily agitated, yells at me when I asked him the year, "give me more time," but does not respond. Does not know the month, does not know why he is in the hospital, easily aroused, upset, yelling, screaming. PAST PSYCHIATRIC HISTORY: At this hospital in the past. SOCIAL HISTORY: Coming from [facility]. The patient states that he was born in [place], . It is unclear if he has any kids. He did not answer this question. MENTAL STATUS EXAMINATION: Stated age, appearing older than stated age, malodorous. Mood "fine." Affect flat. Thought processes were confused. No overt SI or HI. No overt psychotic symptoms, but he is pretty unruly, upset, loud volume of speech. Poor impulse control. PROVISIONAL DIAGNOSIS: Mood, unspecified and also dementia. Under medical, please see full H and P. RECOMMENDATIONS AND PLAN: We will continue to monitor. Monitor for any behavioral disturbances. We will titrate medications as tolerated. [facility]# [id number]
[2018-10-06 05:28] LABS: ANION GAP 10.7 (7.0-16.0); BUN - UREA NITROGEN 20 mg/dL (7-25); CALCIUM SERUM 8.2 mg/dL (8.6-10.3); CARBON DIOXIDE 23.1 mEq/L (21.0-31.0); CHLORIDE 111 mEq/L (98-107); GLUCOSE 117 mg/dL (70-105); POTASSIUM SERUM 3.8 mEq/L (3.5-5.1); SODIUM SERUM 141 mEq/L (136-145)
[2018-10-06 05:34] LABS: % BASOPHILS 0.6 % (0.0-2.0); % EOSINOPHILS 1.9 % (0.0-5.0); % LYMPHOCYTES 25.4 % (20.0-50.0); % MONOCYTES 9.5 % (2.0-10.0); % NEUTROPHILS 62.6 % (40.0-80.0); EOSINOPHILE ABSOLUTE 0.1 Th/cmm (0.1-0.4); HEMATOCRIT 36.7 % (41.0-60); HEMOGLOBIN 12.4 gm/dL (12-16); LYMPHOCYTE ABSOLUTE 1.5 Th/cmm (1.5-3.0); MEAN CELL VOLUME 87.7 fl (80-99); MEAN CORPUSCULAR HEMOGLOBIN 29.5 pg (27.0-31.0); MEAN CORPUSCULAR HGB CONC 33.7 pg (28.0-36.0); MEAN PLATELET VOLUME 6.9 fl; MONOCYTE ABSOLUTE 0.6 Th/cmm (0.3-1.0); NEUTROPHILE ABSOLUTE 3.6 Th/cmm (1.8-8.0); PLATELET COUNT 270 Th/cmm (150-400); RED BLOOD COUNT 4.18 Mil/cmm (3.80-5.80); RED CELL DISTRIBUTION WIDTH 13.2 % (11.5-20.0); WHITE BLOOD COUNT 5.8 Th/cmm (4.8-10.8)
[2018-10-06] MEDS: Sodium Chloride 0.9% 1,000 ML IV SCH ×3 (06:18→20:51)
[2018-10-06] MEDS: INSULIN LISPRO SLIDING SCALE 100 UNITS/ML UNIT SUBQ SCH ×4 (06:38→20:58)
[2018-10-06] MEDS: Aspirin 81mg Chewable Tab PO SCH (09:28)
[2018-10-06] MEDS: Dextromethorphan/Quinidine 20mg/10mg Cap PO SCH ×2 (09:28→18:01)
[2018-10-06] MEDS: Escitalopram Oxalate 5 mg Tab PO SCH (09:29)
[2018-10-06] MEDS: Multivitamin w/ Minerals Tab PO SCH (09:30)
[2018-10-06] MEDS: GALANTAMINE HYDROBROMIDE 12 MG PO SCH ×2 (09:30→18:02)
[2018-10-06] MEDS: Levofloxacin 500mg/100mL 500 MG/100 ML BAG IV SCH (11:57)
--- NOTE | 2018-10-07 02:16 | Progress Notes ---
DATE: 10/06/2018 SUBJECTIVE: The patient is currently in med/surg unit, noted to be very confused, disoriented, only knows his name, does not know where he is or what is going on. Gets really upset if I ask him more questions and he cannot answer, then gets upset when I move on to the next question. The patient, no agitation. PAST PSYCHIATRIC HISTORY: Noted. MENTAL STATUS EXAMINATION: No changes from my exam yesterday. PROVISIONAL DIAGNOSIS: No change including dementia; mood, unspecified. PLAN: We will continue to monitor him. Monitor for any behavioral disturbances. JOB# [id number]
[2018-10-07] MEDS: INSULIN LISPRO SLIDING SCALE 100 UNITS/ML UNIT SUBQ SCH ×3 (06:44→15:51)
[2018-10-07] MEDS: GALANTAMINE HYDROBROMIDE 12 MG PO SCH ×2 (08:51→17:06)
[2018-10-07] MEDS: Multivitamin w/ Minerals Tab PO SCH (08:52)
[2018-10-07] MEDS: Dextromethorphan/Quinidine 20mg/10mg Cap PO SCH ×2 (08:52→17:06)
[2018-10-07] MEDS: Escitalopram Oxalate 5 mg Tab PO SCH (08:52)
[2018-10-07] MEDS: Aspirin 81mg Chewable Tab PO SCH (08:52)
[2018-10-07] MEDS: Sodium Chloride 0.9% 1,000 ML IV SCH (09:24)
[2018-10-07] MEDS: Levofloxacin 500mg/100mL 500 MG/100 ML BAG IV SCH (10:44)
--- NOTE | 2018-10-07 14:47 | Internal Medicine Prog Note ---
Internal Medicine Subjective - Subjective Service Date: 10/07/18 Patient seen and examined:: with staff Patient is:: awake, verbal Per staff patient has:: eating well, tolerating meds Internal Medicine Objective - Results Result Diagrams: 10/06/18 04:40 10/06/18 04:40 Recent Labs: Laboratory Last Values WBC 5.8 Th/cmm (4.8-10.8) 10/06/18 04:40 RBC 4.18 Mil/cmm (3.80-5.80) 10/06/18 04:40 Hgb 12.4 gm/dL (12-16) 10/06/18 04:40 Hct 36.7 % (41.0-60) L 10/06/18 04:40 MCV 87.7 fl (80-99) 10/06/18 04:40 MCH 29.5 pg (27.0-31.0) 10/06/18 04:40 MCHC Differential 33.7 pg (28.0-36.0) 10/06/18 04:40 RDW 13.2 % (11.5-20.0) 10/06/18 04:40 Plt Count 270 Th/cmm (150-400) 10/06/18 04:40 MPV 6.9 fl 10/06/18 04:40 Neutrophils % 62.6 % (40.0-80.0) 10/06/18 04:40 Lymphocytes % 25.4 % (20.0-50.0) 10/06/18 04:40 Monocytes % 9.5 % (2.0-10.0) 10/06/18 04:40 Eosinophils % 1.9 % (0.0-5.0) 10/06/18 04:40 Basophils % 0.6 % (0.0-2.0) 10/06/18 04:40 Sodium 141 mEq/L (136-145) 10/06/18 04:40 Potassium 3.8 mEq/L (3.5-5.1) 10/06/18 04:40 Chloride 111 mEq/L (98-107) H 10/06/18 04:40 Carbon Dioxide 23.1 mEq/L (21.0-31.0) 10/06/18 04:40 Anion Gap 10.7 (7.0-16.0) 10/06/18 04:40 BUN 20 mg/dL (7-25) 10/06/18 04:40 Creatinine 1.0 mg/dL (0.7-1.3) 10/06/18 04:40 Est GFR ( Amer) TNP 10/06/18 04:40 Est GFR (Non-Af Amer) TNP 10/06/18 04:40 BUN/Creatinine Ratio 20.0 10/06/18 04:40 Glucose 117 mg/dL (70-105) H 10/06/18 04:40 POC Glucose 133 MG/DL (70 - 105) H 10/07/18 10:54 Calcium 8.2 mg/dL (8.6-10.3) L 10/06/18 04:40 Urine Source CLEAN C 10/05/18 23:50 Urine Color YELLOW 10/05/18 23:50 Urine Clarity HAZY (CLEAR) 10/05/18 23:50 Urine pH 6.0 (4.6 - 8.0) 10/05/18 23:50 Ur Specific [place] 1.020 (1.005-1.030) 10/05/18 23:50 Urine Protein TRACE mg/dL (NEGATIVE) 10/05/18 23:50 Urine Glucose (UA) NEGATIVE mg/dL (NEGATIVE) 10/05/18 23:50 Urine Ketones TRACE mg/dL (NEGATIVE) 10/05/18 23:50 Urine Blood TRACE (NEGATIVE) 10/05/18 23:50 Urine Nitrate POSITIVE (NEGATIVE) H 10/05/18 23:50 Urine Bilirubin NEGATIVE (NEGATIVE) 10/05/18 23:50 Urine Urobilinogen 0.2 E.U./dL (0.2 - 1.0) 10/05/18 23:50 Ur Leukocyte Esterase MODERATE (NEGATIVE) H 10/05/18 23:50 Urine RBC 0-2 /hpf (0-5) H 10/05/18 23:50 Urine WBC 50-100 /hpf (0-5) H 10/05/18 23:50 Ur Epithelial Cells FEW /lpf (FEW) 10/05/18 23:50 Urine Bacteria MODERATE /hpf (NONE SEEN) H 10/05/18 23:50 - Physical Exam Vitals and I&O: Vital Signs Temp 99.0 F 10/07/18 12:00 Pulse 75 10/07/18 12:00 Resp 20 10/07/18 12:00 BP 101/52 10/07/18 12:00 Pulse Ox 96 10/07/18 12:00 Intake & Output 10/06/18 10/07/18 10/07/18 18:59 06:59 18:59 Intake Total 200 1000 1000 Balance 200 1000 1000 Weight (lbs) 177 lb 6.4 oz Intake: Intake, IV Amount 100 1000 1000 Levofloxacin 500mg/100mL 100 500 mg In 100 ml @ 100 mls/hr IV Q24HR [facility] Rx#: [id number] Sodium Chloride 0.9% 1, 1000 1000 000 ml @ 80 mls/hr IV . [id number] [facility] Rx#:[id number] Oral 100 Other: # Voids 2 # Bowel Movements 1 Weight Source Bedscale Active Medications: Current Medications Acetaminophen (Tylenol) 650 mg PO Q4HR PRN PRN Reason: Mild Pain / Temp above 100 Stop: 12/03/18 17:51 Acetaminophen (Tylenol 650mg Supp) 650 mg RC Q4H PRN PRN Reason: Fever > 102 Stop: 12/05/18 00:15 Last Admin: 10/06/18 20:32 Dose: 650 mg Acetaminophen/Hydrocodone Bitart ([place] 5mg/325mg) 1 tab PO Q8H PRN PRN Reason: Severe Pain Stop: 12/03/18 17:51 Al Hydrox/Mg Hydrox/Simethicone (Maalox) 30 ml PO Q4HR PRN PRN Reason: GI DISTRESS Stop: 12/03/18 17:51 Ascorbic Acid (Vitamin C) 500 mg PO DAILY [facility] Stop: 12/04/18 08:59 Last Admin: 10/07/18 08:52 Dose: 500 mg Aspirin (Aspirin Chewable) 81 mg PO DAILY [facility] Stop: 12/04/18 08:59 Last Admin: 10/07/18 08:52 Dose: 81 mg Atorvastatin Calcium (Lipitor) 40 mg PO HS [facility]; Protocol Stop: 12/03/18 20:59 Last Admin: 10/06/18 20:58 Dose: 40 mg Dextromethorphan/Quinidine (Nuedexta 20mg-10mg) 1 cap PO BID [facility] Stop: 12/04/18 08:59 Last Admin: 10/07/18 08:52 Dose: 1 cap Dextrose (D50w) 50 ml IVP PRN PRN PRN Reason: glucose <60 Stop: 12/03/18 17:54 Ezetimibe (Zetia) 10 mg PO HS [facility] Stop: 12/03/18 20:59 Last Admin: 10/06/18 20:58 Dose: 10 mg Escitalopram Oxalate (Lexapro) 5 mg PO DAILY [facility]; Protocol Stop: 12/04/18 08:59 Last Admin: 10/07/18 08:52 Dose: 5 mg Famotidine (Pepcid) 20 mg PO Q12H [facility] Stop: 12/03/18 17:59 Last Admin: 10/07/18 06:44 Dose: Not Given Galantamine Hydrobromide (Razadyne) 12 mg PO BID [facility] Stop: 12/04/18 08:59 Last Admin: 10/07/18 08:51 Dose: 12 mg Glipizide (Glucotrol) 5 mg PO BIDAC [facility] Stop: 12/04/18 07:29 Last Admin: 10/07/18 06:44 Dose: Not Given Sodium Chloride (Nacl 0.9%) 1,000 mls @ 80 mls/hr IV .[id number] [facility] Stop: 12/03/18 17:59 Last Admin: 10/07/18 09:24 Dose: 80 mls/hr Levofloxacin (Levaquin Pb) 500 mg in 100 mls @ 100 mls/hr IV Q24HR [facility] Stop: 12/05/18 11:44 Last Admin: 10/07/18 10:44 Dose: 100 mls/hr Insulin Human Lispro (Humalog Insulin Sliding Scale) 0 units SUBQ ACHS [facility]; Protocol Stop: 12/03/18 20:59 Last Admin: 10/07/18 11:00 Dose: Not Given Lisinopril (Zestril) 10 mg PO DAILY [facility] Stop: 12/04/18 08:59 Last Admin: 10/07/18 08:52 Dose: 10 mg Lorazepam (Ativan) 0.5 mg PO Q4HR PRN; Protocol PRN Reason: Agitation Stop: 12/03/18 17:51 Last Admin: 10/05/18 21:06 Dose: 0.5 mg Magnesium Hydroxide (Milk Of Magnesia) 30 ml PO HS PRN PRN Reason: Constipation Stop: 12/03/18 17:51 Megestrol Acetate (Megace) 400 mg PO DAILY [facility]; Protocol Stop: 12/04/18 08:59 Last Admin: 10/07/18 08:51 Dose: 400 mg Metoprolol Succinate (Toprol Xl) 25 mg PO DAILY [facility] Stop: 12/04/18 08:59 Last Admin: 10/07/18 08:51 Dose: 25 mg Zolpidem Tartrate (Ambien) 5 mg PO HS PRN PRN Reason: Insomnia Stop: 12/03/18 17:51 Last Admin: 10/05/18 21:06 Dose: 5 mg General: weak HEENT: NC/AT, PERRLA Neck: Supple Lungs: CTAB Cardiovascular: RRR, Normal S1, Normal S2 Abdomen: soft, non-tender, non-distended Extremities: excoriation Neurological: alert Internal Medicine Assmt/Plan - Assessment Assessment: failure to thrive poor oral intake psychosis dm2 gerd - Plan Plan: dc planning in am am labs continue current plan of care Nutritional Asmnt/Malnutr-PDOC - Dietary Evaluation Malnutrition Findings (Please click <Entered> for more info): Nutritional Asmnt/Malnutrition Start: 10/05/18 18: 21 Text: Status: Complete Freq: Protocol: Document 10/05/18 18:21 LCHENG (Rec: 10/05/18 18:45 LCHENG [email or web address]) Nutritional Asmnt/Malnutrition Patient General Information Nutritional Screening High Risk Consult Diagnosis dehydration Pertinent Medical Hx/Surgical Hx DM, hyperlipidemia, GERD, OA Subjective Information Consult received for refugio lower than normal, poor oral intake. Pt was NPO this morning for swallow eval. ST recommended [facility] soft chopped diet with thin liquid. Diet was advanced at dinner, but pt refused dinner per nurse note . Current Diet Order/ Nutrition Support [facility] soft chopped Pertinent Medications vit C, lipitor, pepcid, glucotrol, humalog, megace, nacl 0.9% Pertinent Labs no labs available Nutritional Hx/Data Height 5 ft 10 in Height (Calculated Centimeters) 177.8 Current Weight (lbs) 210 lb Weight (Calculated Kilograms) 95.3 Weight (Calculated Grams) 84284.4 [place] Body Weight 166 Body Mass Index (BMI) 30.1 Weight Status Obese GI Symptoms GI Symptoms None Last BM none Difficult in: None Skin Integrity/Comment: bilateral heels blanchable erythema x2 pressure ulcers coccyx per wound care note, pt refused skin assessment Estimated Nutritional Goals BEE in Kcals: Using Current wt Calories/Kcals/Kg 20-25 Kcals Calculated 9742-2600 Protein: Using Current wt Protein g/k.8-1 Protein Calculated 72-90 Fluid: ml 1900-2375ml (1ml/kcal) Nutritional Problem 1. Problem Problem inadequate food intake Etiology d/t possible confusion Signs/Symptoms: aeb PO intake <25% with refusals Malnutrition Alert Is there a minimum of two criteria No selected? Query Text:Check all the applicable criteria. A minimum of two criteria are recommended for diagnosis of either severe or non-severe malnutrition. Malnutrition Related to Morbid Obesity Malnutrition related to morbid obesity No Intervention/Recommendation Comments 1. Continue with [facility] soft chopped diet as ordered. Assist pt with meal ordering. Consider add Zach BID after wound assessment as needed. 2. Monitor PO intake, wt, labs and skin integrity 3. F/U as high risk in 2-3 days Expected Outcomes/Goals Expected Outcomes/Goals 1. PO intake to meet at least 75% of nutritional needs. 2. Wt stability, skin to remain intact, labs to approach WNL.
[2018-10-07] MEDS: Venelex 60gm Tube TP SCH (17:06)
[2018-10-08] MEDS: Sodium Chloride 0.9% 1,000 ML IV SCH ×2 (00:13→11:51)
[2018-10-08] MEDS: Escitalopram Oxalate 5 mg Tab PO SCH ×2 (09:05→10:21)
[2018-10-08] MEDS: INSULIN LISPRO SLIDING SCALE 100 UNITS/ML UNIT SUBQ SCH ×2 (09:05→11:39)
[2018-10-08] MEDS: Aspirin 81mg Chewable Tab PO SCH ×2 (09:06→10:21)
[2018-10-08] MEDS: Multivitamin w/ Minerals Tab PO SCH ×2 (09:06→10:22)
[2018-10-08] MEDS: Dextromethorphan/Quinidine 20mg/10mg Cap PO SCH ×2 (09:06→10:21)
[2018-10-08] MEDS: GALANTAMINE HYDROBROMIDE 12 MG PO SCH ×2 (09:07→10:21)
[2018-10-08] MEDS: Venelex 60gm Tube TP SCH (09:07)
[2018-10-08] MEDS: Levofloxacin 500mg/100mL 500 MG/100 ML BAG IV SCH (11:40)
[2018-10-08] MEDS ORDERED: Ammonium Lactate Cream 140 gm Tube TP SCH (17:00)
--- NOTE | 2018-10-08 18:11 | Progress Notes ---
DATE: 10/07/2018 SUBJECTIVE: A 73-year-old male who remains very confused, disoriented, AO to name only, generally calm, no agitation, no combative behaviors. MENTAL STATUS EXAMINATION: No changes from my exam yesterday. MEDICATIONS: Noted. PROVISIONAL DIAGNOSIS: No change. PLAN: We will continue to monitor and monitor for any changes in mentation, behavioral disturbances, agitation. [facility]# [id number]
--- NOTE | 2018-10-08 21:43 | Progress Notes ---
DATE: 10/08/2018 SUBJECTIVE: The patient is currently in the hospital, AO to name only, does not really know what is going on. Sometimes taking medications, other times not very compliant. The patient has been generally calm and cooperative, remains fairly confused, impulsive, unpredictable, can get upset very quickly. ASSESSMENT: The patient is confused, disoriented. No overt SI or HI. No overt psychotic symptoms. PROVISIONAL DIAGNOSIS: No change. PLAN: We will continue to monitor. Medications were noted. JOB# [id number]
--- NOTE | 2018-10-08 22:48 | Consultation ---
DATE OF CONSULTATION: 10/08/2018 INFECTIOUS DISEASE CONSULTATION REFERRING PHYSICIAN: Dr. Retana REASON FOR CONSULTATION: Urinary tract infection. HISTORY OF PRESENT ILLNESS: The patient is a 73-year-old male with past medical history of diabetes mellitus type 2, hypertension, hyperlipidemia, GERD, and osteoarthritis, admitted to the psych unit for psych issues. However, his creatinine and BUN got elevated. Urinalysis suggested pyuria and bacteriuria. The patient was started on Levaquin. ID consult was called for antibiotic management. PAST MEDICAL HISTORY: Diabetes mellitus type 2, hyperlipidemia, GERD, osteoarthritis. Social history: Patient lives at care home, no recent history ofsmoking alcohol or drug use. Past surgical history: Unknown. Family history: Noncontributory. Review of system: The patient is confused and unable to obtain. Physical examination: Gen.: Comfortable not in acute distress. Vital signs: Temperature 98.2F pulse 80 Vespa some 19 grippers 146/62. HEENT: Head: NC NT. Her cardiac [place], pink tongue. Eyes: No peripheral neck is. PERRLA. EOMI. Neck: Supple, no JVD. No carotid bruit. No use of accessory neck muscles. Chest: CTAP Abdomen: Soft, nontender, nondistended, bowel sounds present. Extremities: No cyanosis, no clubbing, no edema. Pulses are palpable in all 4 limbs. SIDING APPLICATOR: Unconfused. LAB: WBC 5800 hemoglobin 12.4 hematocrit 26 once or platelets of 270,000. Sodium 141 potassium 3. midfoot 111 bicarbonate is 23 Katelyn is 20 creatinine 1 glucoses 117. UA showed nitrate positive LE moderate and WBC urine 50-100 moderate bacteria. IMPRESSION: 1. Psychosis. 2. Urinary tract infection. 3. Failure to thrive. 4. Diabetes mellitus type 2. 5. GERD. RECOMMENDATIONS: We will continue the same antibiotic, Levaquin IV or p.o., for a total of 7 days, so the patient may need 4 days more of Levaquin. JOB# [id number] [facility]
== END 2018-10-08 16:17 | DRG 871 ==
LOC: MSI 16:15
PROVIDERS: ADMIT Internal Medicine; ATTEND Internal Medicine
DX: A41.9 Sepsis, unspecified organism (principal); R53.2 Functional quadriplegia; N39.0 Urinary tract infection, site not specified; G93.40 Encephalopathy, unspecified; R62.7 Adult failure to thrive; E11.9 Type 2 diabetes mellitus without complications; F39 Unspecified mood [affective] disorder; F03.90 Unspecified dementia, unspecified severity, without behavioral disturbance, psychotic disturbance, mood disturbance, and anxiety; K21.9 Gastro-esophageal reflux disease without esophagitis; E78.5 Hyperlipidemia, unspecified; M19.90 Unspecified osteoarthritis, unspecified site; F29 Unspecified psychosis not due to a substance or known physiological condition; I10 Essential (primary) hypertension
CPT/HCPCS: 36415-UA; 80048-TC; 81001-TC; 81003-TC; 82948-90; 85025-TC; 87086-90; J1815; J1956; J7030; X3401; Z7610